=== PATIENT | male | born 1975 | race Caucasian/White ===

== ENCOUNTER 2017-07-06 14:30 | Emergency (ER) | payer BC ==
[2017-07-06] MEDS ORDERED: SODIUM CHLORIDE 0.9% 1,000 ML IV STA (15:53)
[2017-07-06] MEDS ORDERED: KETOROLAC 30 MG/ML 1 ML VIAL IVP STA (16:17)
[2017-07-06] MEDS ORDERED: ORPHENADRINE 30 MG/ML 2 ML VIAL IVP STA (16:17)
[2017-07-06 16:24] LABS: Basophils % (A) 1 %; Eosinophils # (A) 0.1 k/uL (0-0.7); Eosinophils % (A) 2 %; HCT 40.9 % (39.0-53.0); HGB 14.4 gm/dL (13.0-17.5); Lymphocytes # (A) 1.7 k/uL (1.0-4.8); Lymphocytes % (A) 25 %; MCH 32.8 pg (25.0-35.0); MCHC 35.1 g/dL (31.0-37.0); MCV 93.6 fL (80.0-100.0); Mean Platelet Volume 7.3; Monocytes # (A) 0.4 k/uL (0-1.0); Monocytes % (A) 5 %; Neutrophils # (A) 4.6 k/uL (1.3-7.7); Neutrophils % (A) 66 %; Platelet Count 217 k/uL (150-450); RBC 4.37 m/uL (4.30-5.90)
--- NOTE | 2017-07-06 16:31 | ED ---
Abdominal Pain HPI - General Chief Complaint: Abdominal Pain Stated Complaint: flank pain Time Seen by Provider: 07/06/17 15:52 Source: patient, RN notes reviewed Mode of arrival: wheelchair Limitations: no limitations - History of Present Illness Initial Comments: Is a 41-year-old male presents emergency department to complaint of bilateral flank pain. Patient states that some symptoms in the last week and was seen at [facility]. Patient states that he was told he may have passed a kidney stone. Patient states that he had a CT, lab work with no acute findings. He states that they did not find any evidence of nephrolithiasis or ureteral calculi. Patient states that symptoms return today and feels shooting pain from his flanks fevers for abdomen. Patient denies any chest pain or shortness breath he does admit to his been coughing more usual. Patient had no fever, chills, diarrhea constipation. He does admit to increasing gas. Patient denies any dysuria presented some urinary frequency. Denies headache, dizziness. Patient states that he was on pain medication for his back states it is currently trying to get off pain medications and alcohol and which he is at [place]. - Related Data Home Medications Medication Instructions Recorded Confirmed Amiodarone HCl [Pacerone] 200 mg PO BID 07/06/17 07/06/17 Apixaban [Eliquis] 2.5 mg PO BID 07/06/17 07/06/17 Calcium Carb/Magnesium Ox,Carb 2 tab PO TID 07/06/17 07/06/17 [Ambrose-Mag 500-250 MG Chewable] Calcium Carbonate/Vitamin D3 2 tab PO QAM 07/06/17 07/06/17 [Calcium 600-Vit D3 400 Caplet] Dicyclomine [Bentyl] 10 mg PO QID 07/06/17 07/06/17 Fluticasone Nasal [place] [Flonase 2 spr EA NOSTRIL QAM PRN 07/06/17 07/06/17 Nasal [place]] Fluticasone/Salmeterol [Advair 1 inhalation PO RT-DAILY 07/06/17 07/06/17 250-50 Diskus] Metoprolol Tartrate [Lopressor] 50 mg PO BID 07/06/17 07/06/17 Mirtazapine [Remeron] 30 mg PO HS 07/06/17 07/06/17 Multivitamin [Men's Multi-Vitamin] 1 tab PO QAM 07/06/17 07/06/17 Omeprazole [PriLOSEC] 40 mg PO DAILY 07/06/17 07/06/17 Ondansetron [Zofran] 4 mg PO Q6H PRN 07/06/17 07/06/17 busPIRone HCl [Buspar] 10 mg PO TID PRN 07/06/17 07/06/17 Allergies Allergy/AdvReac Type Severity Reaction Status Date / Time ursodiol Allergy Itching Verified 07/06/17 16:11 Review of Systems ROS Statement: Those systems with pertinent positive or pertinent negative responses have been documented in the HPI. ROS Other: All systems not noted in ROS Statement are negative. Past Medical History Past Medical History: Atrial Fibrillation, COPD Additional Past Medical History / Comment(s): anal fissure,migraines History of Any Multi-Drug Resistant Organisms: None Reported Past Surgical History: Bariatric Surgery Past Psychological History: Depression Smoking Status: Current every day smoker Past Alcohol Use History: Abuse, Daily, Heavy Past Drug Use History: Marijuana General Exam Limitations: no limitations General appearance: alert, in no apparent distress Head exam: Present: atraumatic, normocephalic, normal inspection Eye exam: Present: normal appearance, PERRL, EOMI. Absent: scleral icterus, conjunctival injection, periorbital swelling ENT exam: Present: normal exam, normal oropharynx, mucous membranes moist Neck exam: Present: normal inspection, full ROM. Absent: tenderness, meningismus, lymphadenopathy Respiratory exam: Present: normal lung sounds bilaterally. Absent: respiratory distress, wheezes, rales, rhonchi, stridor Cardiovascular Exam: Present: regular rate, normal rhythm, normal heart sounds. Absent: systolic murmur, diastolic murmur, rubs, gallop, clicks GI/Abdominal exam: Present: soft, tenderness (Mild diffuse), normal bowel sounds. Absent: distended, guarding, rebound, rigid Back exam: Present: full ROM, tenderness, paraspinal tenderness. Absent: CVA tenderness (R), CVA tenderness (L), vertebral tenderness Neurological exam: Present: alert, oriented X3, CN II-XII intact Skin exam: Present: warm, dry, intact, normal color. Absent: rash Course Vital Signs 07/06/17 14:35 Temperature 97.9 F Pulse Rate 64 Respiratory 20 Rate Blood Pressure 118/70 O2 Sat by Pulse 96 Oximetry Medical Decision Making - Medical Decision Making 41-year-old male present emergency from for bilateral flank pain, abdominal discomfort. Patient had lab work CT which is unremarkable. There is no definite cause for his abdominal pain this time or flank pain. This may stem from his chronic back issues or bowel spasms. Patient is requesting food in the emergency department. He is in no distress. Patient be discharged back to [place] at this time. - Lab Data Result diagrams: 07/06/17 16:07 07/06/17 16:07 Lab Results 07/06/17 07/06/17 07/06/17 Range/Units 16:07 16:07 17:17 WBC 7.0 (3.8-10.6) k/uL RBC 4.37 (4.30-5.90) m/uL Hgb 14.4 (13.0-17.5) gm/dL Hct 40.9 (39.0-53.0) % MCV 93.6 (80.0-100.0) fL MCH 32.8 (25.0-35.0) pg MCHC 35.1 (31.0-37.0) g/dL RDW 13.0 (11.5-15.5) % Plt Count 217 (150-450) k/uL Neutrophils % 66 % Lymphocytes % 25 % Monocytes % 5 % Eosinophils % 2 % Basophils % 1 % Neutrophils # 4.6 (1.3-7.7) k/uL Lymphocytes # 1.7 (1.0-4.8) k/uL Monocytes # 0.4 (0-1.0) k/uL Eosinophils # 0.1 (0-0.7) k/uL Basophils # 0.0 (0-0.2) k/uL Sodium 144 (137-145) mmol/L Potassium 5.0 (3.5-5.1) mmol/L Chloride 106 (98-107) mmol/L Carbon Dioxide 25 (22-30) mmol/L Anion Gap 13 mmol/L BUN 17 (9-20) mg/dL Creatinine 0.80 (0.66-1.25) mg/dL Est GFR (CKD-EPI)AfAm >90 (>60 ml/min/1.73 sqM) Est GFR (CKD-EPI)NonAf >90 (>60 ml/min/1.73 sqM) Glucose 95 (74-99) mg/dL Calcium 9.2 (8.4-10.2) mg/dL Total Bilirubin 0.2 (0.2-1.3) mg/dL AST 27 (17-59) U/L ALT 51 (21-72) U/L Alkaline Phosphatase 65 (38-126) U/L Total Protein 6.5 (6.3-8.2) g/dL Albumin 4.2 (3.5-5.0) g/dL Amylase 72 (30-110) U/L Lipase 439 H (23-300) U/L Urine Color Yellow Urine Appearance Clear (Clear) Urine pH 7.0 (5.0-8.0) Ur Specific [place] 1.019 (1.001-1.035) Urine Protein Negative (Negative) Urine Glucose (UA) Negative (Negative) Urine Ketones Negative (Negative) Urine Blood Negative (Negative) Urine Nitrite Negative (Negative) Urine Bilirubin Negative (Negative) Urine Urobilinogen <2.0 (<2.0) mg/dL Ur Leukocyte Esterase Negative (Negative) Disposition Clinical Impression: Abdominal pain, Back pain Disposition: HOME SELF-CARE Condition: Stable Instructions: Abdominal Pain (ED) Additional Instructions: Please return to the Emergency Department if symptoms worsen or any other concerns. Is patient prescribed a controlled substance at d/c from ED?: No Referrals: Bayron Alvarez MD [Primary Care Provider] - 1-2 days Time of Disposition: 18:24
--- NOTE | 2017-07-06 16:32 | XR ---
EXAMINATION TYPE: XR chest 2V DATE OF EXAM: 07/06/2017 COMPARISON: NONE HISTORY: COPD with cough. TECHNIQUE: Frontal and lateral views of the chest are obtained. FINDINGS: There is no focal air space opacity, pleural effusion, or pneumothorax seen. The cardiac silhouette size is upper limits of normal. The osseous structures are intact. IMPRESSION: No suspicious acute infiltrate.
--- NOTE | 2017-07-06 16:33 | XR ---
EXAMINATION TYPE: XR KUB DATE OF EXAM: 07/06/2017 4:23 PM CLINICAL HISTORY: Bilateral flank pain. TECHNIQUE: 3 Upright KUB images of the abdomen are obtained. COMPARISON: None. FINDINGS: Surgical sutures and clips epigastric region are seen. There are additional mid and lower l eft abdominal clips. Scattered gas is seen in non-distended small bowel loops. Gas and fecal material is seen in non-distended colon. There is no visceromegaly, pneumoperitoneum, or abnormal calcificati on appreciated. The lung bases are clear and the osseous structures are intact. IMPRESSION: Overall nonobstructive bowel gas pattern.
[2017-07-06 16:52] LABS: ALT 51 U/L (21-72); AST 27 U/L (17-59); Albumin 4.2 g/dL (3.5-5.0); Alkaline Phosphatase 65 U/L (38-126); Amylase 72 U/L (30-110); Anion Gap 13 mmol/L; Blood Urea Nitrogen 17 mg/dL (9-20); Calcium 9.2 mg/dL (8.4-10.2); Carbon Dioxide 25 mmol/L (22-30); Chloride 106 mmol/L (98-107); Glucose 95 mg/dL (74-99); Lipase 439 U/L (23-300); Sodium 144 mmol/L (137-145); Total Bilirubin 0.2 mg/dL (0.2-1.3); Total Protein 6.5 g/dL (6.3-8.2)
[2017-07-06 17:27] LABS: Appearance,Urine Clear (Clear); Bilirubin,Urine Negative (Negative); Blood,Urine Negative (Negative); Color,Urine Yellow; Glucose,Urine (UA) Negative (Negative); Ketones,Urine Negative (Negative); Leukocyte Esterase,Urine Negative (Negative); Nitrite,Urine Negative (Negative); Protein,Urine Negative (Negative); Specific Gravity,Urine 1.019 (1.001-1.035); Urobilinogen,Urine <2.0 mg/dL (<2.0)
[2017-07-06] MEDS ORDERED: RX INFO: IV CONTRAST WAS GIVEN 1 EACH MISC MISCELLANE PRN (17:31)
[2017-07-06] MEDS ORDERED: IOPAMIDOL-300 CONTRAST 30 ML VIAL (ORAL USE) PO PRN (17:35)
--- NOTE | 2017-07-06 18:21 | CT ---
EXAMINATION TYPE: CT abdomen pelvis w con DATE OF EXAM: 07/06/2017 COMPARISON: NONE HISTORY: Bilateral flank pain CT DLP: 1847.8 mGycm Automated exposure control for dose reduction was used. TECHNIQUE: Helical acquisition of images was performed from the lung bases through the pelvis. CONTRAST: Performed with Oral Contrast and with IV Contrast, patient injected with 100 mL of Isovue 300. FINDINGS: Lung bases are clear. There is no pleural effusion. Heart size is normal. There is no pericardial eff usion. Liver spleen pancreas appear normal. Bile ducts are not dilated. Gallbladder appears normal. There is no adrenal mass. Kidneys show satisfactory contrast opacification. There is no hydronephrosis. There is no retroperitoneal adenopathy. There is no ascites. Bladder distends smoothly. There is no sign o f a pelvic mass. There is a moderate posterior L5-S1 disc herniation with calcification. There are mu ltiple surgical clips around the stomach. Appendix appears normal. IMPRESSION: BARIATRIC SURGERY. NO EVIDENCE OF RENAL STONE OR OBSTRUCTION. I DO NOT SEE A CAUSE FOR FLANK PAIN. LA RGE POSTERIOR CALCIFIED L5-S1 DISC HERNIATION WITHOUT SIGNIFICANT SPINAL STENOSIS.
[2017-07-06 18:59] VITALS: BP 128/74; PULSE 67; RESP 18; TEMP 98
== END 2017-07-06 19:23 | disposition home or self-care (01) ==
LOC: EC 14:30 → SUPCPDRO 14:30 → EC 19:23
DX: M54.9 Dorsalgia, unspecified (principal); R10.9 Unspecified abdominal pain; I48.91 Unspecified atrial fibrillation; J44.9 Chronic obstructive pulmonary disease, unspecified; F32.9 Major depressive disorder, single episode, unspecified; F17.200 Nicotine dependence, unspecified, uncomplicated; Z98.84 Bariatric surgery status; Z79.01 Long term (current) use of anticoagulants; Z79.51 Long term (current) use of inhaled steroids; Z79.899 Other long term (current) drug therapy; Z88.8 Allergy status to other drugs, medicaments and biological substances
CPT/HCPCS: 99284; 96374; 96375; 96361 ×3; 36415; 80053; 82150; 83690; 85025; 81003; 71046; 74018; 74177; J2360; J1885; Q9967

== ENCOUNTER 2020-06-02 20:46 | Emergency (ER) | payer BC, OTHER ==
[2020-06-02 20:52] VITALS: BP 134/84; PULSE 84; RESP 16; TEMP 98
[2020-06-02] MEDS ORDERED: DEXAMETHASONE SOD PHOSPHATE 10 MG/ML 1 ML VIAL IV STA (21:36)
[2020-06-02] MEDS ORDERED: LIDOCAINE 5% PATCH TOPICAL STA (21:36)
[2020-06-02] MEDS ORDERED: HYDROmorphone 1 MG/ML 1 ML SYRINGE IVP STA (21:37)
--- NOTE | 2020-06-02 22:26 | ED ---
Back Pain HPI - General Chief Complaint: Back Pain/Injury Stated Complaint: Back Pain Time Seen by Provider: 06/02/20 21:05 Source: patient, EMS Limitations: no limitations - History of Present Illness Initial Comments: 44-year-old male with history of chronic back pain and disc herniation presents to emergency Department with a chief complaint of back pain. States earlier tod ay he was playing baseball and he dove for a ball, he got up and immediately began developing increased back pain with an ablation. Patient reports the pain is located in his lumbar spine. States pain is worse than typical. States he takes gabapentin for pain otherwise. States he has been previously seen in the emergency department for back pain. Also reports seeing a barrel painter. He is currently undergoing detox therapy for alcoholism. He denies any other complaints. Denies saddle anesthesia, urinary retention with overflow incontinence or bowel incontinence. - Related Data Home Medications Medication Instructions Recorded Confirmed Amiodarone HCl [Pacerone] 200 mg PO BID 07/06/17 07/06/17 Apixaban [Eliquis] 2.5 mg PO BID 07/06/17 07/06/17 Calcium Carb/Magnesium Ox,Carb 2 tab PO TID 07/06/17 07/06/17 [Ambrose-Mag 500-250 MG Chewable] Calcium Carbonate/Vitamin D3 2 tab PO QAM 07/06/17 07/06/17 [Calcium 600-Vit D3 400 Caplet] Dicyclomine [Bentyl] 10 mg PO QID 07/06/17 07/06/17 Fluticasone Nasal [place] [Flonase 2 spr EA NOSTRIL QAM PRN 07/06/17 07/06/17 Nasal [place]] Fluticasone/Salmeterol [Advair 1 inhalation PO RT-DAILY 07/06/17 07/06/17 250-50 Diskus] Metoprolol Tartrate [Lopressor] 50 mg PO BID 07/06/17 07/06/17 Mirtazapine [Remeron] 30 mg PO HS 07/06/17 07/06/17 Multivitamin [Men's Multi-Vitamin] 1 tab PO QAM 07/06/17 07/06/17 Omeprazole [PriLOSEC] 40 mg PO DAILY 07/06/17 07/06/17 Ondansetron [Zofran] 4 mg PO Q6H PRN 07/06/17 07/06/17 busPIRone HCl [Buspar] 10 mg PO TID PRN 07/06/17 07/06/17 Allergies Allergy/AdvReac Type Severity Reaction Status Date / Time ursodiol AdvReac Itching Verified 06/02/20 22:20 Review of Systems ROS Statement: Those systems with pertinent positive or pertinent negative responses have been documented in the HPI. ROS Other: All systems not noted in ROS Statement are negative. Past Medical History Past Medical History: Atrial Fibrillation, COPD Additional Past Medical History / Comment(s): anal fissure,migraines History of Any Multi-Drug Resistant Organisms: None Reported Past Surgical History: Bariatric Surgery Past Psychological History: Depression Smoking Status: Current every day smoker Past Alcohol Use History: Abuse, Daily, Heavy Past Drug Use History: Marijuana General Exam Limitations: no limitations General appearance: alert, in no apparent distress, obese Head exam: Present: atraumatic, normocephalic, normal inspection Eye exam: Present: normal appearance, PERRL, EOMI Pupils: Present: normal accommodation ENT exam: Present: normal exam, normal oropharynx, mucous membranes moist, TM's normal bilaterally, normal external ear exam Neck exam: Present: normal inspection, full ROM. Absent: tenderness Respiratory exam: Present: normal lung sounds bilaterally. Absent: respiratory distress Cardiovascular Exam: Present: regular rate, normal rhythm, normal heart sounds GI/Abdominal exam: Present: soft. Absent: distended, tenderness, guarding, rebound Extremities exam: Present: normal inspection, full ROM, normal capillary refill. Absent: tenderness Back exam: Present: normal inspection, full ROM, tenderness, paraspinal tenderness (Lumbar tenderness.). Absent: CVA tenderness (R), CVA tenderness (L), muscle spasm, vertebral tenderness Neurological exam: Present: alert, oriented X3 Psychiatric exam: Present: normal affect, normal mood Skin exam: Present: warm, dry, intact, normal color Course Vital Signs 06/02/20 20:48 Temperature 98 F Pulse Rate 84 Respiratory 16 Rate Blood Pressure 134/84 O2 Sat by Pulse 94 L Oximetry Medical Decision Making - Medical Decision Making 44-year-old male presents to emergency department with a chief complaint of back pain. Acute on chronic back pain. No saddle anesthesia. Patient was given a Lidoderm patch, Decadron, IV fluids and Dilaudid. On reevaluation, patient reports improvement in symptoms. Patient feels comfortable going home and following up with a sports medicine specialist. Return parameters were discussed the patient was understanding and agreeable. Case discussed with Disposition Clinical Impression: Mechanical back pain Disposition: HOME SELF-CARE Condition: Stable Instructions (If sedation given, give patient instructions): Acute Low Back Pain (ED) Additional Instructions: Please return to the Emergency Department if symptoms worsen or any other concerns.. Follow with orthopedic doctor. Is patient prescribed a controlled substance at d/c from ED?: No Referrals: None,Stated [Primary Care Provider] - 1-2 days Ayush Marc DO [Doctor of Osteopathic Medicine] - 1-2 days Time of Disposition: 22:26
== END 2020-06-02 23:15 | disposition home or self-care (01) ==
LOC: EC 20:46
DX: M54.5 Low back pain (principal); I48.91 Unspecified atrial fibrillation; J44.9 Chronic obstructive pulmonary disease, unspecified; F32.9 Major depressive disorder, single episode, unspecified; E66.9 Obesity, unspecified; F17.200 Nicotine dependence, unspecified, uncomplicated; F12.90 Cannabis use, unspecified, uncomplicated; Z79.01 Long term (current) use of anticoagulants; Z79.51 Long term (current) use of inhaled steroids; Z68.33 Body mass index [BMI] 33.0-33.9, adult; Y93.64 Activity, baseball
CPT/HCPCS: 99283; 96374; 96375; J1100; J1170

== ENCOUNTER 2020-06-12 23:21 | Emergency (ER) | payer OTHER ==
[2020-06-13 00:55] VITALS: TEMP 98.1
[2020-06-13] MEDS ORDERED: SODIUM CHLORIDE 0.9% 1,000 ML IV STA (01:58)
[2020-06-13] MEDS ORDERED: HYDROmorphone 1 MG/ML 1 ML SYRINGE IVP STA (02:13)
--- NOTE | 2020-06-13 02:17 | ED ---
General Adult HPI - General Chief complaint: Skin/Abscess/Foreign Body Stated complaint: Lower back pain,Extremity swelling Time Seen by Provider: 06/13/20 01:44 Source: patient, RN notes reviewed Mode of arrival: ambulatory Limitations: no limitations - History of Present Illness Initial comments: Patient is a 44-year-old male that presents to emergency department with left lower extremity swelling. Tenderness. He notes that approximately 4 days ago he started taking Lasix for lower extremities swelling bilaterally. He noted that the right leg went down to the left leg. He was transferred from [place] to get further evaluated. He noted that he is having significant pain. He does have chronic back pain he was complaining of also. He notes that his leg is painful to light touch swollen. She denied any history of clots or DVTs. He did report a history of congestive heart failure chronic back pain. He denied any chest pain shortness of breath headache nausea vomiting diarrhea constipation fever fatigue chills weakness numbness tingling in lower extremities. - Related Data Home Medications Medication Instructions Recorded Confirmed Multivitamin [Men's Multi-Vitamin] 1 tab PO DAILY 07/06/17 06/02/20 busPIRone HCl [Buspar] 10 mg PO TID PRN 07/06/17 06/02/20 Acetaminophen [Tylenol Arthritis] 650 mg PO Q4H PRN 06/02/20 06/02/20 Albuterol Inhaler [Ventolin Hfa 2 puff INHALATION RT-Q4H PRN 06/02/20 06/02/20 Inhaler] Calcium/Magnesium/Zinc 2 tab PO TID PRN 06/02/20 06/02/20 [Kwubxds-Haxmbbozq-Hwni Tablet] Chlorpheniramine Maleate 4 mg PO Q4HR PRN 06/02/20 06/02/20 [Chlor-Trimeton] Ergocalciferol [Vitamin D2 (1250 1,250 mcg PO TH 06/02/20 06/02/20 Mcg = 93138 Iu)] Gabapentin [Neurontin] 300 mg PO BID 06/02/20 06/02/20 Loperamide [Imodium] 4 mg PO QID PRN 06/02/20 06/02/20 Propranolol [Inderal] 10 mg PO DAILY@0600 06/02/20 06/02/20 Thiamine [Vitamin B-1] 100 mg PO DAILY 06/02/20 06/02/20 Tigan 200mg 200 mg IM Q6H PRN 06/02/20 06/02/20 Trimethobenzamide [Tigan] 300 mg PO Q6H PRN 06/02/20 06/02/20 Zofran 4mg Im 4 mg IM Q6H PRN 06/02/20 06/02/20 ondansetron HCL [Zofran] 8 mg PO Q6H PRN 06/02/20 06/02/20 Allergies Allergy/AdvReac Type Severity Reaction Status Date / Time ursodiol AdvReac Itching Verified 06/13/20 00:55 Review of Systems ROS Statement: Those systems with pertinent positive or pertinent negative responses have been documented in the HPI. ROS Other: All systems not noted in ROS Statement are negative. Past Medical History Past Medical History: Atrial Fibrillation, COPD Additional Past Medical History / Comment(s): anal fissure,migraines History of Any Multi-Drug Resistant Organisms: None Reported Past Surgical History: Bariatric Surgery Past Psychological History: Depression Smoking Status: Current every day smoker Past Alcohol Use History: Abuse, Daily, Heavy Past Drug Use History: Marijuana General Exam Limitations: no limitations General appearance: alert, in no apparent distress Head exam: Present: atraumatic, normocephalic, normal inspection Eye exam: Present: normal appearance, PERRL, EOMI. Absent: scleral icterus, conjunctival injection, periorbital swelling Neck exam: Present: normal inspection. Absent: tenderness, meningismus, lymphad enopathy Respiratory exam: Present: normal lung sounds bilaterally. Absent: respiratory distress, wheezes, rales, rhonchi, stridor Cardiovascular Exam: Present: regular rate, normal rhythm, normal heart sounds. Absent: systolic murmur, diastolic murmur, rubs, gallop, clicks GI/Abdominal exam: Present: soft, normal bowel sounds. Absent: distended, tenderness, guarding, rebound, rigid Extremities exam: Present: normal inspection, full ROM, tenderness (Left lower extremity mid thigh down most intense area is calf.), normal capillary refill. Absent: pedal edema, joint swelling, calf tenderness Neurological exam: Present: alert, oriented X3, CN II-XII intact Psychiatric exam: Present: normal affect, normal mood Skin exam: Present: warm, dry, intact, normal color. Absent: rash Course Vital Signs 06/13/20 00:52 Temperature 98.1 F Pulse Rate 92 Respiratory 20 Rate Blood Pressure 151/83 O2 Sat by Pulse 94 L Oximetry Medical Decision Making - Medical Decision Making 44-year-old male complaining of left lower extremity/calf pain tenderness and swelling. Labs, Doppler ultrasound of left lower extremity, 1 mg of Dilaudid, 1 L normal saline ordered. labs unremarkable, d-dimer WNL US complete no evidence for DVT Case discussed with Dr. English, patient can discharge back to [place]. - Lab Data Result diagrams: 06/13/20 02:20 06/13/20 02:20 Lab Results 06/13/20 06/13/20 06/13/20 Range/Units 02:20 02:20 02:20 WBC 5.9 (3.8-10.6) k/uL RBC 4.14 L (4.30-5.90) m/uL Hgb 12.2 L (13.0-17.5) gm/dL Hct 37.9 L (39.0-53.0) % MCV 91.6 (80.0-100.0) fL MCH 29.6 (25.0-35.0) pg MCHC 32.3 (31.0-37.0) g/dL RDW 16.7 H (11.5-15.5) % Plt Count 170 (150-450) k/uL MPV 7.9 Neutrophils % 58 % Lymphocytes % 30 % Monocytes % 7 % Eosinophils % 4 % Basophils % 1 % Neutrophils # 3.4 (1.3-7.7) k/uL Lymphocytes # 1.8 (1.0-4.8) k/uL Monocytes # 0.4 (0-1.0) k/uL Eosinophils # 0.3 (0-0.7) k/uL Basophils # 0.0 (0-0.2) k/uL Anisocytosis Slight PT 9.9 (9.0-12.0) sec INR 0.9 (<1.2) APTT 20.3 L (22.0-30.0) sec D-Dimer 0.35 (<0.60) mg/L FEU Sodium 138 (137-145) mmol/L Potassium 4.3 (3.5-5.1) mmol/L Chloride 104 (98-107) mmol/L Carbon Dioxide 26 (22-30) mmol/L Anion Gap 8 mmol/L BUN 9 (9-20) mg/dL Creatinine 0.46 L (0.66-1.25) mg/dL Est GFR (CKD-EPI)AfAm >90 (>60 ml/min/1.73 sqM) Est GFR (CKD-EPI)NonAf >90 (>60 ml/min/1.73 sqM) Glucose 95 (74-99) mg/dL Calcium 9.1 (8.4-10.2) mg/dL Total Bilirubin 0.4 (0.2-1.3) mg/dL AST 49 (17-59) U/L ALT 36 (4-49) U/L Alkaline Phosphatase 115 (38-126) U/L Total Protein 6.9 (6.3-8.2) g/dL Albumin 4.1 (3.5-5.0) g/dL Disposition Clinical Impression: Lower extremity edema Disposition: HOME SELF-CARE Condition: Stable Instructions (If sedation given, give patient instructions): Leg Edema (ED) Additional Instructions: Please return to the Emergency Department if symptoms worsen or any other concerns. Continue to take Lasix as prescribed. Follow-up with primary care in 2-4 days. Continue to take [id number] anti-inflammatories for pain control. Is patient prescribed a controlled substance at d/c from ED?: No Referrals: None,Stated [Primary Care Provider] - 1-2 days Time of Disposition: 03:59
[2020-06-13 02:25] LABS: Anisocytosis Slight; Basophils % (A) 1 %; Eosinophils # (A) 0.3 k/uL (0-0.7); Eosinophils % (A) 4 %; HCT 37.9 % (39.0-53.0); HGB 12.2 gm/dL (13.0-17.5); Lymphocytes # (A) 1.8 k/uL (1.0-4.8); Lymphocytes % (A) 30 %; MCH 29.6 pg (25.0-35.0); MCHC 32.3 g/dL (31.0-37.0); MCV 91.6 fL (80.0-100.0); Mean Platelet Volume 7.9; Monocytes # (A) 0.4 k/uL (0-1.0); Monocytes % (A) 7 %; Neutrophils # (A) 3.4 k/uL (1.3-7.7); Neutrophils % (A) 58 %; Platelet Count 170 k/uL (150-450); RBC 4.14 m/uL (4.30-5.90); RDW 16.7 % (11.5-15.5); WBC 5.9 k/uL (3.8-10.6)
[2020-06-13 02:52] LABS: ALT 36 U/L (4-49); AST 49 U/L (17-59); African American GFR (CKD) >90 (>60 ml/min/1.73 sqM); Albumin 4.1 g/dL (3.5-5.0); Alkaline Phosphatase 115 U/L (38-126); Anion Gap 8 mmol/L; Blood Urea Nitrogen 9 mg/dL (9-20); Calcium 9.1 mg/dL (8.4-10.2); Carbon Dioxide 26 mmol/L (22-30); Chloride 104 mmol/L (98-107); Glucose 95 mg/dL (74-99); Non-African American GFR(CKD) >90 (>60 ml/min/1.73 sqM); Potassium 4.3 mmol/L (3.5-5.1); Sodium 138 mmol/L (137-145); Total Bilirubin 0.4 mg/dL (0.2-1.3); Total Protein 6.9 g/dL (6.3-8.2)
[2020-06-13] MEDS ORDERED: MORPHINE SULFATE 4 MG/ML SYRINGE IVP STA (03:01)
[2020-06-13 03:21] LABS: D-Dimer 0.35 mg/L FEU (<0.60); INR 0.9 (<1.2); Prothrombin Time 9.9 sec (9.0-12.0)
[2020-06-13 03:29] LABS: Partial Thromboplastin Time 20.3 sec (22.0-30.0)
--- NOTE | 2020-06-13 03:56 | US ---
EXAM: US Duplex Left Lower Extremity Veins CLINICAL HISTORY: ITS.REASON US Reason: Swelling, tenderness. TECHNIQUE: Real-time duplex ultrasound scan of the left lower extremity veins integrating B-mode two-dimensional vascular structure, Doppler spectral analysis, color flow Doppler imaging and compression. COMPARISON: No relevant prior studies available. FINDINGS: Deep veins: Unremarkable. No DVT in the visualized common femoral, femoral, proximal deep femoral or popliteal veins. The veins demonstrate normal color flow, are normally compressible, with normal phasic flow and/or augmentation response. Superficial veins: Unremarkable. No thrombus in the visualized great saphenous vein. Soft tissues: No acute findings. No popliteal cyst. IMPRESSION: No evidence of deep vein thrombus in the left lower extremity.
[2020-06-13 04:24] VITALS: BP 144/93; PULSE 73; RESP 18
== END 2020-06-13 04:25 | disposition home or self-care (01) ==
LOC: EC 23:21
DX: R60.0 Localized edema (principal); G89.29 Other chronic pain; M54.5 Low back pain; M79.662 Pain in left lower leg; I50.9 Heart failure, unspecified; F32.9 Major depressive disorder, single episode, unspecified; J44.9 Chronic obstructive pulmonary disease, unspecified; I48.91 Unspecified atrial fibrillation; F17.200 Nicotine dependence, unspecified, uncomplicated
CPT/HCPCS: 36415; 85379; 80053; 85025; 85610; 85730; 93971; 99284; 96374; 96375; 96361 ×2; J2270; J1170

== ENCOUNTER 2024-07-30 09:37 | Emergency (ER) | payer BC, OTHER ==
--- NOTE | 2024-07-30 10:04 | ED ---
Abdominal Pain HPI - General Chief Complaint: Abdominal Pain Stated Complaint: Abd pain Time Seen by Provider: 07/30/24 09:39 Source: patient, EMS, RN notes reviewed Mode of arrival: EMS Limitations: no limitations - History of Present Illness Initial Comments: 49-year-old male presents to the emergency department with chief complaint of abdominal pain. Patient states started after eating. Patient states he has had this in the past without any clear diagnosis. Patient states the pain is worse in his mid abdomen radiates to his back. Patient is in current rehab for alcohol abuse. Patient denies any abdominal surgeries no chest pain no shortness of breath no headache or dizziness. - Related Data Home Medications Medication Instructions Recorded Confirmed Multivitamin [Men's Multi-Vitamin] 1 tab PO DAILY 07/06/17 06/02/20 busPIRone HCl [Buspar] 10 mg PO TID PRN 07/06/17 06/02/20 Acetaminophen [Tylenol Arthritis] 650 mg PO Q4H PRN 06/02/20 06/02/20 Albuterol Inhaler [Ventolin Hfa 2 puff INHALATION RT-Q4H PRN 06/02/20 06/02/20 Inhaler] Calcium/Magnesium/Zinc 2 tab PO TID PRN 06/02/20 06/02/20 [Ldkxhpr-Nmleibwlm-Ddqw Tablet] Chlorpheniramine Maleate 4 mg PO Q4HR PRN 06/02/20 06/02/20 [Chlor-Trimeton] Ergocalciferol [Vitamin D2 (1250 1,250 mcg PO TH 06/02/20 06/02/20 Mcg = 13376 Iu)] Gabapentin [Neurontin] 300 mg PO BID 06/02/20 06/02/20 Loperamide [Imodium] 4 mg PO QID PRN 06/02/20 06/02/20 Propranolol [Inderal] 10 mg PO DAILY@0600 06/02/20 06/02/20 Thiamine [Vitamin B-1] 100 mg PO DAILY 06/02/20 06/02/20 Tigan 200mg 200 mg IM Q6H PRN 06/02/20 06/02/20 Trimethobenzamide [Tigan] 300 mg PO Q6H PRN 06/02/20 06/02/20 Zofran 4mg Im 4 mg IM Q6H PRN 06/02/20 06/02/20 ondansetron HCL [Zofran] 8 mg PO Q6H PRN 06/02/20 06/02/20 Allergies Allergy/AdvReac Type Severity Reaction Status Date / Time ursodiol AdvReac Itching Verified 07/30/24 09:40 Review of Systems ROS Statement: Those systems with pertinent positive or pertinent negative responses have been documented in the HPI. ROS Other: All systems not noted in ROS Statement are negative. Past Medical History Past Medical History: Atrial Fibrillation, COPD Additional Past Medical History / Comment(s): anal fissure,migraines History of Any Multi-Drug Resistant Organisms: None Reported Past Surgical History: Bariatric Surgery Additional Past Surgical History / Comment(s): Complete gastric bypass 2012 Past Psychological History: Depression Smoking Status: Current every day smoker Past Alcohol Use History: Abuse, Daily, Heavy Past Drug Use History: Marijuana General Exam Limitations: no limitations General appearance: alert, in no apparent distress Head exam: Present: atraumatic, normocephalic, normal inspection Eye exam: Present: normal appearance, PERRL, EOMI. Absent: scleral icterus, conjunctival injection, periorbital swelling Neck exam: Present: normal inspection. Absent: tenderness, meningismus, lymphadenopathy Respiratory exam: Present: normal lung sounds bilaterally. Absent: respiratory distress, wheezes, rales, rhonchi, stridor Cardiovascular Exam: Present: regular rate, normal rhythm, normal heart sounds. Absent: systolic murmur, diastolic murmur, rubs, gallop, clicks GI/Abdominal exam: Present: soft, tenderness, normal bowel sounds. Absent: distended, guarding, rebound, rigid Back exam: Absent: CVA tenderness (R), CVA tenderness (L) Course Vital Signs 07/30/24 07/30/24 07/30/24 09:41 09:49 11:00 Temperature 97.5 F L Pulse Rate 54 L 60 56 L Respiratory 18 18 16 Rate Blood Pressure 114/82 115/80 121/74 O2 Sat by Pulse 95 97 97 Oximetry Medical Decision Making - Medical Decision Making Was pt. sent in by a medical professional or institution (, PA, FILAMENT WELDER, urgent care, hospital, or group home...) When possible be specific @ -[facility] Did you speak to anyone other than the patient for history (EMS, parent, family, police, friend...)? What history was obtained from this source @ -No Did you review nursing and triage notes (agree or disagree)? Why? @ -I reviewed and agree with nursing and triage notes Were old charts reviewed (outside hosp., previous admission, EMS record, old EKG, old radiological studies, urgent care reports/EKG's, group home records)? Report findings @ -No old charts were reviewed Differential Diagnosis (chest pain, altered mental status, abdominal pain women, abdominal pain men, vaginal bleeding, weakness, fever, dyspnea, syncope, headache, dizziness, GI bleed, back pain, seizure, CVA, palpatations, mental health, musculoskeletal)? @ -Differential Abdominal Pain Men: Appendicitis, cholecystitis, diverticulosis, ischemic bowel, pancreatitis, hepatitis, UTI, gastroenteritis, AAA, incarcerated hernia, bowel obstruction, constipation, inflammatory bowel, hepatitis, peptic ulcer disease, splenic infarction, perforated viscus, testicular torsion, this is not meant to be an all-inclusive list EKG interpreted by me (3pts min.). @ -None X-rays interpreted by me (1pt min.). @ -None done CT interpreted by me (1pt min.). @ -CT abdomen pelvis showing no acute intra-abdominal process no acute infection, obstruction or evidence of cholecystitis or pancreatitis U/S interpreted by me (1pt. min.). @ -None done What testing was considered but not performed or refused? (CT, X-rays, U/S, labs)? Why? @ -None What meds were considered but not given or refused? Why? @ -None Did you discuss the management of the patient with other professionals (professionals i.e. , PA, FILAMENT WELDER, lab, RT, psych nurse, psychologist social, automotive mechanic, teacher, armed security officer, keycase assembler)? Give summary @ -No Was smoking cessation discussed for >3mins.? @ -No Was critical care preformed (if so, how long)? @ -No Were there social determinants of health that impacted care today? How? (Homelessness, low income, unemployed, alcoholism, drug addiction, transportation, low edu. Level, literacy, decrease access to med. care, fdc, rehab)? @ -No Was there de-escalation of care discussed even if they declined (Discuss DNR or withdrawal of care, Hospice)? DNR status @ -No What co-morbidities impacted this encounter? (DM, HTN, Smoking, COPD, CAD, Cancer, CVA, ARF, Chemo, Hep., AIDS, mental health diagnosis, sleep apnea, morbid obesity)? @ -None Was patient admitted / discharged? Hospital course, mention meds given and route, prescriptions, significant lab abnormalities, going to OR and other pertinent info. @ -[Discharge patient negative workup. Patient more likely has abdominal pain from chronic alcohol abuse. Patient will be discharged in stable condition return awilda discussed. Undiagnosed new problem with uncertain prognosis? @ -No Drug Therapy requiring intensive monitoring for toxicity (Heparin, Nitro, Insulin, Cardizem)? @ -No Were any procedures done? @ -No Diagnosis/symptom? @ -Abdominal pain Acute, or Chronic, or Acute on Chronic? @ -Acute Uncomplicated (without systemic symptoms) or Complicated (systemic symptoms)? @ -Complicated Side effects of treatment? @ -No Exacerbation, Progression, or Severe Exacerbation? @ -No Poses a threat to life or bodily function? How? (Chest pain, [place], NH, pneumonia, PE, COPD, DKA, ARF, appy, cholecystitis, CVA, Diverticulitis, Homicidal, Suicidal, threat to staff... and all critical care pts) @ -No - Lab Data Result diagrams: 07/30/24 10:41 07/30/24 10:41 Lab Results 07/30/24 07/30/24 07/30/24 Range/Units 10:28 10:41 10:41 WBC 4.68 (4.50-10.00) 10*3/uL RBC 3.97 L (4.40-5.60) 10*6/uL Hgb 11.7 L (13.0-17.0) g/dL Hct 35.2 L (39.6-50.0) % MCV 88.7 (80.0-97.0) fL MCH 29.5 (27.0-32.0) pg MCHC 33.2 (32.0-37.0) g/dL Plt Count 124 L (140-440) 10*3/uL MPV 9.9 (9.5-12.2) fL Immature Gran % (Auto) 0.4 % Neutrophils % 54.8 % Lymphocytes % 29.3 % Monocytes % 13.0 % Eosinophils % 2.1 % Basophils % 0.4 % Immature Gran # 0.02 (0.00-0.04) 10*3/uL Neutrophils # 2.56 (1.80-7.70) 10*3/uL Lymphocytes # 1.37 (0.90-5.00) 10*3/uL Monocytes # 0.61 (0.20-1.00) 10*3/uL Eosinophils # 0.10 (0.04-0.35) 10*3/uL Basophils # 0.02 (0.00-0.10) 10*3/uL Immature Plt Fraction 2.4 (1.1-6.1) % Sodium 135 L (137-145) mmol/L Potassium 4.4 (3.5-5.1) mmol/L Chloride 104 (98-107) mmol/L Carbon Dioxide 27 (22-30) mmol/L Anion Gap 4 mmol/L BUN 12 (9-20) mg/dL Creatinine 0.58 L (0.66-1.25) mg/dL Est GFR (CKD-EPI)AfAm >90 (>60 ml/min/1.73 sqM) Est GFR (CKD-EPI)NonAf >90 (>60 ml/min/1.73 sqM) Glucose 93 (74-99) mg/dL Plasma Lactic Acid Kennedy (0.7-2.0) mmol/L Calcium 8.5 (8.4-10.2) mg/dL Total Bilirubin 0.5 (0.2-1.3) mg/dL AST 24 (17-59) U/L ALT 35 (4-49) U/L Alkaline Phosphatase 48 (38-126) U/L Total Protein 5.8 L (6.3-8.2) g/dL Albumin 3.5 (3.5-5.0) g/dL Amylase 56 (30-110) U/L Lipase 218 (23-300) U/L Urine Color Colorless Urine Appearance Clear (Clear) Urine pH 7.0 (5.0-8.0) Ur Specific Roy 1.009 (1.001-1.035) Urine Protein Negative (Negative) Urine Glucose (UA) Negative (Negative) Urine Ketones Negative (Negative) Urine Blood Negative (Negative) Urine Nitrite Negative (Negative) Urine Bilirubin Negative (Negative) Urine Urobilinogen <2.0 (<2.0) mg/dL Ur Leukocyte Esterase Moderate H (Negative) Urine WBC 10 H (0-5) /hpf Ur Squamous Epith Cells <1 (0-4) /hpf 07/30/24 Range/Units 10:41 WBC (4.50-10.00) 10*3/uL RBC (4.40-5.60) 10*6/uL Hgb (13.0-17.0) g/dL Hct (39.6-50.0) % MCV (80.0-97.0) fL MCH (27.0-32.0) pg MCHC (32.0-37.0) g/dL Plt Count (140-440) 10*3/uL MPV (9.5-12.2) fL Immature Gran % (Auto) % Neutrophils % % Lymphocytes % % Monocytes % % Eosinophils % % Basophils % % Immature Gran # (0.00-0.04) 10*3/uL Neutrophils # (1.80-7.70) 10*3/uL Lymphocytes # (0.90-5.00) 10*3/uL Monocytes # (0.20-1.00) 10*3/uL Eosinophils # (0.04-0.35) 10*3/uL Basophils # (0.00-0.10) 10*3/uL Immature Plt Fraction (1.1-6.1) % Sodium (137-145) mmol/L Potassium (3.5-5.1) mmol/L Chloride (98-107) mmol/L Carbon Dioxide (22-30) mmol/L Anion Gap mmol/L BUN (9-20) mg/dL Creatinine (0.66-1.25) mg/dL Est GFR (CKD-EPI)AfAm (>60 ml/min/1.73 sqM) Est GFR (CKD-EPI)NonAf (>60 ml/min/1.73 sqM) Glucose (74-99) mg/dL Plasma Lactic Acid Kennedy <0.5 L (0.7-2.0) mmol/L Calcium (8.4-10.2) mg/dL Total Bilirubin (0.2-1.3) mg/dL AST (17-59) U/L ALT (4-49) U/L Alkaline Phosphatase (38-126) U/L Total Protein (6.3-8.2) g/dL Albumin (3.5-5.0) g/dL Amylase (30-110) U/L Lipase (23-300) U/L Urine Color Urine Appearance (Clear) Urine pH (5.0-8.0) Ur Specific Roy (1.001-1.035) Urine Protein (Negative) Urine Glucose (UA) (Negative) Urine Ketones (Negative) Urine Blood (Negative) Urine Nitrite (Negative) Urine Bilirubin (Negative) Urine Urobilinogen (<2.0) mg/dL Ur Leukocyte Esterase (Negative) Urine WBC (0-5) /hpf Ur Squamous Epith Cells (0-4) /hpf Disposition Clinical Impression: Abdominal pain Disposition: HOME SELF-CARE Condition: Stable Instructions (If sedation given, give patient instructions): Abdominal Pain (ED) Additional Instructions: Please return to the Emergency Department if symptoms worsen or any other concerns. Is patient prescribed a controlled substance at d/c from ED?: No Referrals: None,Stated [Primary Care Provider] - 1-2 days
[2024-07-30] MEDS: SODIUM CHLORIDE 0.9% 1,000 ML IV SCH (10:53)
[2024-07-30 10:55] LABS: Appearance,Urine Clear (Clear); Bilirubin,Urine Negative (Negative); Blood,Urine Negative (Negative); Color,Urine Colorless; Glucose,Urine (UA) Negative (Negative); Ketones,Urine Negative (Negative); Leukocyte Esterase,Urine Moderate (Negative); Nitrite,Urine Negative (Negative); Protein,Urine Negative (Negative); Specific Gravity,Urine 1.009 (1.001-1.035); Squamous Epithelial Cell,Urine <1 /hpf (0-4); Urobilinogen,Urine <2.0 mg/dL (<2.0); WBC,Urine 10 /hpf (0-5)
[2024-07-30] MEDS: HYDROmorphone 0.5 MG/0.5 ML SYRINGE IVP STA (10:55)
[2024-07-30] MEDS: KETOROLAC 15 MG/ML 1 ML VIAL IVP STA (10:55)
[2024-07-30] MEDS: ONDANSETRON 4 MG/2 ML VIAL IVP STA (10:55)
[2024-07-30 11:01] LABS: Albumin 3.5 g/dL (3.5-5.0); Glucose 93 mg/dL (74-99); Total Protein 5.8 g/dL (6.3-8.2)
[2024-07-30 11:02] LABS: ALT 35 U/L (4-49); AST 24 U/L (17-59); African American GFR (CKD) >90 (>60 ml/min/1.73 sqM); Alkaline Phosphatase 48 U/L (38-126); Amylase 56 U/L (30-110); Anion Gap 4 mmol/L; Blood Urea Nitrogen 12 mg/dL (9-20); Calcium 8.5 mg/dL (8.4-10.2); Carbon Dioxide 27 mmol/L (22-30); Chloride 104 mmol/L (98-107); Lipase 218 U/L (23-300); Non-African American GFR(CKD) >90 (>60 ml/min/1.73 sqM); Potassium 4.4 mmol/L (3.5-5.1); Sodium 135 mmol/L (137-145); Total Bilirubin 0.5 mg/dL (0.2-1.3)
[2024-07-30 11:07] LABS: Basophils # (A) 0.02 10*3/uL (0.00-0.10); Basophils % (A) 0.4 %; Eosinophils % (A) 2.1 %; HCT 35.2 % (39.6-50.0); HGB 11.7 g/dL (13.0-17.0); Immature Platelet Fraction 2.4 % (1.1-6.1); Lymphocytes # (A) 1.37 10*3/uL (0.90-5.00); Lymphocytes % (A) 29.3 %; MCH 29.5 pg (27.0-32.0); MCHC 33.2 g/dL (32.0-37.0); MCV 88.7 fL (80.0-97.0); Mean Platelet Volume 9.9 fL (9.5-12.2); Monocytes # (A) 0.61 10*3/uL (0.20-1.00); Neutrophils # (A) 2.56 10*3/uL (1.80-7.70); Neutrophils % (A) 54.8 %; Platelet Count 124 10*3/uL (140-440); RBC 3.97 10*6/uL (4.40-5.60); RDW 15.2 % (11.5-14.5); WBC 4.68 10*3/uL (4.50-10.00)
--- NOTE | 2024-07-30 11:27 | CT ---
EXAMINATION TYPE: CT abdomen pelvis w con DATE OF EXAM: 07/30/2024 COMPARISON: 07/06/2017 CLINICAL INDICATION: Male, 49 years old with history of abdominal pain; PHH, Pain in upper abdomen ra diating to patient's spine. TECHNIQUE: Performed without Oral Contrast and with IV Contrast, patient injected with 100 ml mL of Isovue 300. CT DLP: 1848.[address] CTDI: mGy Automated exposure control for dose reduction was used. FINDINGS: The lung bases are clear. There are stable postsurgical changes of gastric bypass surgery. The gallbladder is normal without distention, wall thickening, pericholecystic fluid or gallstones. T here is no biliary ductal dilatation. There is no focal mass or organomegaly involving the liver, pancreas, spleen or adrenal glands. There is no solid renal mass or hydronephrosis and there is homogeneous contrast enhancement of the r enal parenchyma. The caliber the abdominal aorta is normal is no retroperitoneal adenopathy or hemorr chente. The bowel loops are normal in caliber and there is no evidence of dilatation or obstruction. No infla mmatory changes are identified in the bowel wall or mesentery. There is no free intraperitoneal air or fluid. No pelvic mass, free fluid, abscess or adenopathy. The osseous structures and soft tissues are intact. IMPRESSION: No acute changes within the abdomen or pelvis. No interval change compared to previous X-Ray Flynn Jameson, , 07/30/2024 11:25 AM
[2024-07-30 12:45] VITALS: BP 132/82; PULSE 64; RESP 20; TEMP 98
== END 2024-07-30 12:45 | disposition home or self-care (01) ==
LOC: EC 09:37
DX: R10.9 Unspecified abdominal pain (principal); F17.200 Nicotine dependence, unspecified, uncomplicated; Z88.8 Allergy status to other drugs, medicaments and biological substances
CPT/HCPCS: 36415; 80053; 82150; 83605; 83690; 85025; 81001; 74177; 99284; 96374; 96375 ×2; 96361; J2405; J1885; J1171; Q9967